=== PATIENT | female | born 1940 | race African-American/Black ===

== ENCOUNTER 2022-01-15 16:47 | Emergency (ER) | payer OTHER ==
[~2022-01-15] VITALS: Ht 162.6 cm; Wt 67.0 kg
[2022-01-15] MEDS ORDERED: MORPHINE SULFATE 4 MG/ML CPJ (NOT FOR IM USE) IV STA (17:56)
[2022-01-15 18:09] LABS: BASOPHILS % 0.9 % (0.0-2.0); EOSINOPHILS % 0.7 % (0.0-5.0); HEMATOCRIT. 46.5 % (36.0-48.0); HEMOGLOBIN. 15.6 g/dL (12.0-16.0); LYMPHOCYTES % 38.1 % (20.0-50.0); MEAN CORPUSCULAR HEMOGLOBIN 28.3 pg (28.0-32.0); MEAN CORPUSCULAR VOLUME 84.6 fL (81.0-99.0); MONOCYTES % 6.5 % (2.0-8.0); NEUTROPHILS % 53.8 % (40.0-76.0); RED CELL DISTRIBUTION WIDTH 14.7 % (11.6-14.6)
[2022-01-15 18:20] LABS: CHLORIDE 102 mEq/L (98-107)
[2022-01-15 18:26] LABS: PROTHROMBIN TIME 10.8 sec (9.6-11.0)
[2022-01-15 18:47] LABS: MEAN PLATELET VOLUME 11.1 fl (7.4-10.4); PLATELET 177 x1000/uL (130-400)
[2022-01-15] MEDS ORDERED: ONDANSETRON HCL 4MG/2ML INJ IV ONE (19:30)
[2022-01-15] MEDS ORDERED: IOHEXOL-350 100 ML BOTTLE ONE (21:19)
[2022-01-15 22:30] VITALS: BP 118/66
== END 2022-01-15 22:31 | disposition home or self-care (01) ==
LOC: ER 16:47
DX: R10.13 Epigastric pain (principal); I47.1 Supraventricular tachycardia
CPT/HCPCS: 36415; 71045; 71275; 74174; 80053; 83690; 83880; 84484; 85025; 85610; 86850; 86900; 86901; 93005; 96374; 96375; 99285; J2270; J2405; Q9967